=== PATIENT | female | born 1940 | race Caucasian/White ===

== ENCOUNTER 2016-10-03 14:55 | Inpatient (IN) | payer MEDICARE, BC ==
[~2016-10-03] VITALS: Ht 160 cm; Wt 45.4 kg
[~2016-10-03 14:55] MED LIST: ANTIVERT25 MG PO; ASPIRIN81 MG PO; DURAGESIC1 PATCH .7 TRANSDERM; K-DUR20 MEQ PO; MAG-OX 400 MG400 MG PO; METOPROLOL TART50 MG PO; MOBIC7.5 MG PO; NORVASC5 MG PO; PEPCID20 MG PO; PERCOCET 5-3251 TAB PO; PLAVIX75 MG PO; ZOFRAN ODT4 MG/UDTAB PO
[2016-10-03] MEDS ORDERED: OMEPRAZOLE20 M1 PO (15:44)
[2016-10-03] MEDS ORDERED: VITAMIN B650 MG PO (15:45)
[2016-10-03] MEDS ORDERED: DULCOLAX STOOL100 MG PO (15:45)
[2016-10-03] MEDS ORDERED: DULCOLAX5 MG PO (15:47)
[2016-10-03 16:10] VITALS: BP 148/88
--- NOTE | 2016-10-03 16:14 | NUR ---
Patient Name: RAYNA WOOD Admission Status: Elective Accout number: [id number] Admission Date: 10-03-2016 : 1940 Admission Diagnosis: Attending: NAYANA Current LOS: 1 Anticipated DC Date: 10-08-2016 Planned Disposition: Home Primary Insurance: MEDICARE A & B Discharge Planning Comments: CM MET WITH PATIENT AND SISTER (NICKO WOOD) REGARDING D/C NEEDS AND PLANS. PATIENT IS PARTIAL DEPENDENT WITH HER CARE. PATIENTS SISTER STATED THEY HAVE 2 STEPS W/RAILS TO ENTER HOME AND NO STAIRS INSIDE. PATIENT NEEDS HELP TRANSFERRING, BATH, DRESSING, MEDICATION, AND TOILETING. PATIENT CAN FEED HERSELF. PATIENT HAS A CAN AND A BUILT IN SHOWER CHAIR. PATIENTS PCP IS DR. LOPEZ AND PHARMACY IS [facility] AT [place]. PATIENT HAD [facility] BACK IN NOVEMBER AND WILL USE THEM AGAIN IF NEEDED. CM WILL CONTINUE TO FOLLOW PATIENT WITH D/C NEEDS AND PLANS. PCP DR. LOPEZ [facility] [place] IN [place]- [phone] NICKO WOOD (SISTER) [phone] Straight Line Press Setter: Latonia Bocanegra Is the patient Alert and Oriented? Yes 0 * How many steps to enter\exit or inside your home? 2 W/RAILS 0 * PCP DR. LOPEZ 0 * Pharmacy [facility] AT [place] 0 * Preadmission Environment Home with Family 0 * ADLs Partial Dependent 0 * Partial ADLs (Assistance needed) Ambulation Bathing Dressing Medication Management Toileting Transfers 0 * Equipment Cane 0 * Other Equipment BUILT IN SHOWER CHAIR 0 * List name and contact numbers for known caregivers / representatives who currently or will assist patient after discharge: NICKO WOOD (SISTER) [phone] 0 * Community resources currently utilized None 0 * Additional services required to return to the preadmission environment? Yes 0 * Can the patient safely return to the preadmission environment? Yes 0 * Has this patient been hospitalized within the prior 30 days at any hospital? No 0 Grand Total: 0
[2016-10-03 16:15] LABS: BASOPHILS 0.3 % (0.0-2.0); EOSINOPHILS 0.8 % (0-7); HEMATOCRIT 29.7 % (36.0-48.0); HEMOGLOBIN 9.8 g/dL (12-16); IMMATURE GRANULOCYTES 0.1 % (0-5); MCH 32.5 pg (26.0-34.0); MCV 98.3 fL (80.0-100.0); MEAN PLATELET VOLUME 10.3 fL (7.4-10.4); MONOCYTES 6.6 % (2-11); NEUTROPHILS 85.2 % (40-80); RBC 3.02 10x6/uL (4.00-5.40); RDW 14.3 % (11.5-14.5); WBC 7.1 10x3/uL (4.8-10.8)
[2016-10-03 16:19] LABS: PLATELET COUNT 271 10x3/uL (130-400)
--- NOTE | 2016-10-03 16:31 | NUR ---
LEFT SUBCLAVIAN PORT ACCESSED,Openbravo USED 20G,1 INCH NEEDLE.PT TOLERATED WELL.ASSESSMENT PER FLOW SHEET.
[2016-10-03 16:53] LABS: ALBUMIN 1.5 g/dL (3.4-5.0); ANION GAP 13.7 mmol/L (8-16); BILIRUBIN - TOTAL 0.22 mg/dL (0.2-1.3); CALCIUM 9.2 mg/dL (8.5-10.1); CARBON DIOXIDE 25.2 mmol/L (21.0-32.0); CREATININE - SERUM 0.8 mg/dL (0.6-1.3); POTASSIUM - SERUM 3.9 mmol/L (3.5-5.1); PROTEIN - SERUM 4.4 g/dL (6.4-8.2)
[2016-10-03 18:51] VITALS: BP 144/88
[2016-10-03 19:00] VITALS: BP 126/66
--- NOTE | 2016-10-03 19:27 | NUR ---
REMAINS WITHOUT NEEDS,WITHOUT CHANGE.CONT PLAN OF CARE
[2016-10-03 22:32] LABS: APPEARANCE CLEAR (CLEAR); BILIRUBIN NEGATIVE (NEGATIVE); COLOR YELLOW (YELLOW); GLUCOSE NEGATIVE (NEGATIVE); KETONE NEGATIVE (NEGATIVE); LEUKOCYTE ESTERASE TRACE (NEGATIVE); NITRITE NEGATIVE (NEGATIVE); PROTEIN NEGATIVE (NEGATIVE); UROBILINOGEN NORMAL (NORMAL)
[2016-10-03 22:33] LABS: BACTERIA FEW /hpf (NONE SEEN); EPITHELIAL CELLS 0-5 /hpf (0-5); RED CELLS - URINE 0-5 /hpf (0-5); WHITE CELLS - URINE 0-5 /hpf (0-5)
[2016-10-04] VITALS: BP 173/65
--- NOTE | 2016-10-04 01:11 | NUR ---
RESTING QUIETLY.NO DISTRESS NOTED.CL IN REACH. FAMILY AT BEDSIDE
[2016-10-04 04:00] VITALS: BP 132/63
--- NOTE | 2016-10-04 05:04 | NUR ---
PATIENT SLEEPING WITH NO DISTRESS NOTED. RR EVEN AND UNLABORED. LEFT PORT PATENT WITH NS INFUSING AT 50. FAMILY AT BEDSIDE. SRX2. BED LOW. CALL LIGHT WITHIN REACH.
--- NOTE | 2016-10-04 06:46 | NUR ---
NO CHANGE IN ASSESSMENT
--- NOTE | 2016-10-04 07:20 | NUR ---
PATIENT IS AWAKE AND ALERT. SHE RATES HER PAIN A 10 ON THE PAIN SCALE. SHE STATES THAT SHE HAD A TERRIBLE NIGHT DUE TO THE PAIN/ INABILITY TO SLEEP. MEDICATED AFTER ASSISTING HER UP TO THE RESTROOM. SHE VOIDED 300CC YELLOW URINE. SHE DOES REQUIRE MODERATE ASSIST OF ONE PERSON TO GET UP TO THE BEDSIDE.
[2016-10-04 07:35] LABS: BASOPHILS 0.5 % (0.0-2.0); EOSINOPHILS 2.3 % (0-7); HEMATOCRIT 31.4 % (36.0-48.0); HEMOGLOBIN 10.2 g/dL (12-16); IMMATURE GRANULOCYTES 0.3 % (0-5); LYMPHOCYTES 15.2 % (15-50); MCH 32.1 pg (26.0-34.0); MCHC 32.5 g/dL (31.0-37.0); MCV 98.7 fL (80.0-100.0); MEAN PLATELET VOLUME 10.3 fL (7.4-10.4); MONOCYTES 8.4 % (2-11); NEUTROPHILS 73.3 % (40-80); PLATELET COUNT 290 10x3/uL (130-400); RBC 3.18 10x6/uL (4.00-5.40); RDW 14.3 % (11.5-14.5); WBC 7.8 10x3/uL (4.8-10.8)
[2016-10-04 07:51] LABS: ALBUMIN 1.6 g/dL (3.4-5.0); ALKALINE PHOSPHATASE 307 U/L (46-116); ALT (SGPT) 31 U/L (10-68); BILIRUBIN - TOTAL 0.41 mg/dL (0.2-1.3); CALC OSMOLALITY 268 mosm/kg (275-300); CALCIUM 9.6 mg/dL (8.5-10.1); CARBON DIOXIDE 30.1 mmol/L (21.0-32.0); CHLORIDE - SERUM 102 mmol/L (98-107); CREATININE - SERUM 0.6 mg/dL (0.6-1.3); POTASSIUM - SERUM 4.3 mmol/L (3.5-5.1); PROTEIN - SERUM 4.8 g/dL (6.4-8.2); SODIUM 136 mmol/L (136-145); UREA NITROGEN 6 mg/dL (7-18); eGFR NON AFRICAN AMERICAN > 90 mL/min (90-120)
[2016-10-04 07:52] LABS: GLUCOSE 82 mg/dL (74-106)
[2016-10-04 08:04] VITALS: BP 147/59
--- NOTE | 2016-10-04 08:37 | NUR ---
PATIENT C/O NAUSEA R/T THE PAIN IN HER BACK. MEDICATION GIVEN. SHE STATES THAT HER BACK PAIN IS STILL RATED A 9 BUT SHE FEELS BETTER. SISTER REMAINS AT THE BEDISDE. PATIENT'S EYES WERE CLOSED WHEN I ENTERED BUT AROUSED TO MY VOICE.
--- NOTE | 2016-10-04 10:04 | NUR ---
PATIENT ATE A BIT OF HER PANCAKES AND VOMITED. C/O CONTINUED PAIN.
[2016-10-04 11:39] VITALS: BP 155/59
[2016-10-04 13:43] VITALS: Ht 160 cm; Wt 45.4 kg
--- NOTE | 2016-10-04 15:35 | NUR ---
PATIENT RESTING WITH HOB UP 30 DEGREES. TV ON LOW. SISTER AT THE BEDSIDE. SHE C/O PAIN AT AN 8. ALSO CONTINUES TO HAVE NAUSEA.
[2016-10-04 15:36] VITALS: BP 149/66
[2016-10-04 19:00] VITALS: BP 125/71
[2016-10-05] VITALS (7 sets, daily range): BP systolic 135–171; BP diastolic 57–80
--- NOTE | 2016-10-05 00:55 | NUR ---
PATIENT SLEEPING SUPINE IN BED WITH NO DISTRSS NOTED. HOB 20 DEGREES. RR EVEN AND UNLABORED. LEFT PORT PATENT AND INFUSING NS @ 50. SCD'S ON. FAMILY AT BEDSIDE. SRX2. BED LOW. CALL LIGHT WITHIN REACH.
--- NOTE | 2016-10-05 07:57 | NUR ---
PATIENT IS AWAKE AND ALERT, ORIENTED TIMES THREE, RESTING EASILY, BUT C/O PAIN ON RIGHT ARM ESPECIALLY HER ELBOW. FAMILY AT BEDSIDE.
--- NOTE | 2016-10-05 08:45 | NUR ---
PATIENT C/O NAUSEA. PROVIDED ZOFRAN IVP, SEE MAR.
--- NOTE | 2016-10-05 09:15 | NUR ---
PATIENT SAYS SHE IS STILL NAUSEATED AND NOT ABLE TO EAT, PROVIDED ICE CHIPS AND SHE IS TRYING TO DRINK A LITTLE WATER.
--- NOTE | 2016-10-05 10:03 | NUR ---
PATIENT C/O PAIN IN RIGHT ARM RATES IT 8-9-10 OUT OF 10. DILAUDID IVP PROVIDED, SEE MAR.
--- NOTE | 2016-10-05 10:30 | NUR ---
PATIENT SAYS PAIN IS LESS, BUT IT REMAINS CONSTANT.
--- NOTE | 2016-10-05 10:53 | NUR ---
PATIENT C/O SOB AND SAYS SHE CAN'T SWALLOW, CHECKED SPO2 IT IS 98-99%. SHE DENIES PAIN IN THROAT AND SHE IS LIFTED UP IN BED. RASHIDA GUAJARDO IS TRYING TO CALM PATIENT BY ASKING HER TO TAKE SOME SLOW DEP BREATHS.
--- NOTE | 2016-10-05 11:50 | NUR ---
PATIENT IS CALMER, BUT SHE SAYS SHE IS HAVING PAIN IN THE BACK OF HER NECK. SHE IS BREATHING EASIER AND SHE IS LESS ANXIOUS.
[2016-10-06] VITALS: BP 173/65
--- NOTE | 2016-10-06 03:47 | NUR ---
PATIENT SLEEPING SUPINE IN BED. HOB 20 DEGREES. RR EVEN AND UNLAORED. 0 S/S OF DISTRESS. LEFT PORT PATENT INFUSING NS @ 50. SCD'S ON. FAMILY AT BEDSIDE. SRX2. BED LOW. CALL LIGHT WITHIN REACH.
[2016-10-06 04:00] VITALS: BP 179/83
--- NOTE | 2016-10-06 07:33 | NUR ---
AWAKE AND ALERT. ORIENTED X3. C/O INTENSE BACK PAIN LEVEL 6. BP ELEVATED WELL. GIVEN 2MG DILAUDID SLOW IVP FOR SAME. WILL MONITOR. LUNGS ARE CLEAR BILATERALLY, NO COUGH NOTED BUT DIMINISED IN LOWER LOBES. SKIN IS INTACT WITHOUT REDNESS BUT SOME BRUISING NOTED TO LEFT UPPER ARM WHICH SHE REPORTS FROM BP CUFF. WILL MONITOR. SCD'S IN PLACE. DENJENNYS NEEDS.
[2016-10-06 07:49] VITALS: BP 166/137
--- NOTE | 2016-10-06 10:42 | NUR ---
REQUESTED AND GIVNE ONE OXYCODONE PO FOR C/O GENERALIZED PAIN AFTER ACTIVITY OF ADL'S. PAIN LEVEL 10. WILL MONITOR.
[2016-10-06 12:22] VITALS: BP 130/78
--- NOTE | 2016-10-06 15:34 | NUR ---
REQUESTED AND GIVEN 2 MG HYDROMOPHONE SLOW IVP FOR C/O NECK PAIN LEVEL 9. WILL MONITOR.
[2016-10-06 16:00] VITALS: BP 130/58
--- NOTE | 2016-10-06 18:13 | NUR ---
ATE ABOUT HALF OF SUPPER WITH FAMILY'S ASSISTANCE. NO CHANGES NOTED. DENIES NEEDS.
--- NOTE | 2016-10-06 19:58 | NUR ---
PRN PERCOCET GIVEN FOR C/O OF GEN PAIN 06/09, MARI WELL, ASSISTED TO RESTROOM, ASSESSMENT COMPLETED, DENIES FURTHER NEEDS VISITOR IN ROOM, CL IN REACH, WILL MONITOR
[2016-10-06 20:43] VITALS: BP 144/68
--- NOTE | 2016-10-06 21:30 | NUR ---
LYING IN BED WATCHING TV, FAMILY IN ROOM, DENIES NEEDS, CL IN REACH
--- NOTE | 2016-10-06 23:20 | NUR ---
RESTING WITH EYES CLOSED, RESP WITH EASE, NO DISTRESS NOTED, CL IN REACH
--- NOTE | 2016-10-07 05:43 | NUR ---
PRN DILAUDID GIVEN FOR C/O PAIN 07/09 ALONG WITH ROUTINE MEDS, MARI WELL, FAMILY AT BEDSIDE, CL IN REACH
--- NOTE | 2016-10-07 07:48 | NUR ---
AWAKE AND ALERT. ORIENTED X3. NO C/O AT THIS TIME. LUNGS ARE CLEAR BILATERALLY, NO COUGH NOTED. SKIN IS INTACT WITHOUT REDNESS. LEFT PORT PATENT WITHOUT REDNESS AT INSERTION SITE. DENIES NEEDS. SCD'S IN PLACE.
[2016-10-07 08:04] VITALS: BP 130/80
--- NOTE | 2016-10-07 09:45 | NUR ---
UP TO BR WITH 2 PERSON MIN ASSIST. HAD VERY SMALL BM. SKIN CARE PER SELF.
[2016-10-07 11:56] VITALS: BP 130/60
[2016-10-07 15:59] VITALS: BP 130/70
[2016-10-07 19:00] VITALS: BP 146/68
--- NOTE | 2016-10-07 19:06 | NUR ---
UP TO BR WITH 2 PERSON MIN ASSIST. HAD LARGE FORMED STOOL. SKIN CARE PER SELF.
--- NOTE | 2016-10-07 19:55 | NUR ---
ASSESSMENT COMPLETED, FAMILY IN ROOM, DENIES NEEDS, SR'S UP X2, CL IN REACH
--- NOTE | 2016-10-07 19:55 | NUR ---
PRN DILAUDID GIVEN FOR C/O PAIN 07/09, MARI WELL, ASSESSMENT COMPLETED, NO OTHER NEEDS NOTED, FAMILY IN ROOM, SR'S UP , CL IN REACH, WILL MONITOR
--- NOTE | 2016-10-07 22:51 | NUR ---
MEDS GIVEN PER MAR , MARI WELL, FAMILY IN ROOM, WILL MONITOR
--- NOTE | 2016-10-08 01:22 | NUR ---
ASSISTED UP TO RESTROOM AND BACK TO BED, NO ACUTE DISTRESS NOTED, DSG TO L SUBCLAVIAN CHANGED USING STERILE TECHNIQUE, PICKARD LEFT IN PLACE, MARI WELL, DENIES NEEDS., FALL PRECAUTIONS IN PLACE, FAMILY IN ROOM, CL IN REACH
--- NOTE | 2016-10-08 03:55 | NUR ---
RESTING WITH EYES CLOSED, RESP WITH EASE, NO DISTRESS NOTED, SR'S UPL, CL IN REACH, FAMILY AT BEDSIDE
[2016-10-08 04:00] VITALS: BP 138/70
[2016-10-08 08:07] VITALS: BP 172/74
--- NOTE | 2016-10-08 09:00 | NUR ---
ASSESSMENT PER FLOW SHEET.PT WITHOUT DISTRESS.STATES PAIN 8/10 SCALE TO BACK.STATES THIS IS CHRONIC FROM CANCER.FAMILY AT BEDSIDE.CALL LIGHT IN REACH
[2016-10-08 12:09] VITALS: BP 166/70
[2016-10-08] MEDS ORDERED: LOVENOX40 MG/0.4 SC (13:48)
[2016-10-08] MEDS ORDERED: DULCOLAX STOOL100 MG PO (13:48)
[2016-10-08] MEDS ORDERED: ZOFRAN ODT4 MG/UDTAB PO (13:48)
[2016-10-08] MEDS ORDERED: ASPIRIN81 MG PO (13:48)
[2016-10-08] MEDS ORDERED: PERCOCET 5-3251 TAB PO (13:48)
[2016-10-08] MEDS ORDERED: OMEPRAZOLE20 M1 PO (13:48)
[2016-10-08] MEDS ORDERED: DURAGESIC1 PATCH .7 TRANSDERM (13:48)
[2016-10-08] MEDS ORDERED: VITAMIN B650 MG PO (13:49)
[2016-10-08] MEDS ORDERED: DULCOLAX5 MG PO (13:49)
--- NOTE | 2016-10-08 14:10 | NUR ---
DELILAH REASSESSMENT NOTE: CALL TO [facility] FOR TRANSFER OF PATIENT FOR RADIATION WAS INITIATED THIS AM. CM RECIEVED CALL FROM CACHORRO AT [facility] AND ROOM IS READY - 446 ON 4. DELILAH CALLED DR. LOPEZ AND HE IS PUTTING D/C ORDERS IN. NURSE WAS NOTIFIED OF PATIENTS ACCEPTANCE AND PHONE NUMBER FOR REPORT WAS GIVEN TO [facility]. TRANSFER BACK AGREEMENT WAS SIGNED BY ALEXANDER CLARKCAKE WINDER.
--- NOTE | 2016-10-08 14:38 | NUR ---
REPORT TO [facility],SPOKE WITH ENMA
--- NOTE | 2016-10-08 15:46 | NUR ---
LEFT UNIT WITH [facility] FOR TRANSPORT TO [facility]
== END 2016-10-08 15:47 | disposition short-term general hospital, planned readmission (82) | DRG 947 ==
LOC: D.MS 14:55
PROVIDERS: ADMIT Legal Medicine
DX: G89.3 Neoplasm related pain (acute) (chronic) (principal); I26.99 Other pulmonary embolism without acute cor pulmonale; C18.9 Malignant neoplasm of colon, unspecified; C79.51 Secondary malignant neoplasm of bone; K59.00 Constipation, unspecified

== ENCOUNTER 2016-11-05 03:40 | Emergency (ER) | payer MEDICARE, BC ==
[2016-10-04 13:43] VITALS: BMI 17.7
[~2016-11-05 03:40] MED LIST changes: +DULCOLAX STOOL100 MG PO; +DULCOLAX5 MG PO; +LOVENOX40 MG/0.4 SC; +OMEPRAZOLE20 M1 PO; +VITAMIN B650 MG PO
[2016-11-05 06:34] LABS: BASOPHILS 0.2 % (0.0-2.0); EOSINOPHILS 0.2 % (0-7); HEMATOCRIT 33.3 % (36.0-48.0); HEMOGLOBIN 11.7 g/dL (12-16); IMMATURE GRANULOCYTES 0.2 % (0-5); LYMPHOCYTES 3.3 % (15-50); MCHC 35.1 g/dL (31.0-37.0); MCV 93.8 fL (80.0-100.0); MEAN PLATELET VOLUME 10.3 fL (7.4-10.4); MONOCYTES 9.3 % (2-11); NEUTROPHILS 86.8 % (40-80); PLATELET COUNT 261 10x3/uL (130-400); RBC 3.55 10x6/uL (4.00-5.40); RDW 15.6 % (11.5-14.5); WBC 8.3 10x3/uL (4.8-10.8)
[2016-11-05 06:53] LABS: ALBUMIN 1.6 g/dL (3.4-5.0); ALKALINE PHOSPHATASE 392 U/L (46-116); ALT (SGPT) 60 U/L (10-68); CALC OSMOLALITY 250 mosm/kg (275-300); CALCIUM 8.7 mg/dL (8.5-10.1); CARBON DIOXIDE 29.1 mmol/L (21.0-32.0); CHLORIDE - SERUM 91 mmol/L (98-107); CREATININE - SERUM 0.7 mg/dL (0.6-1.3); GLUCOSE 87 mg/dL (74-106); POTASSIUM - SERUM 4.8 mmol/L (3.5-5.1); PROTEIN - SERUM 4.7 g/dL (6.4-8.2); SODIUM 126 mmol/L (136-145); UREA NITROGEN 10 mg/dL (7-18); eGFR NON AFRICAN AMERICAN 86 mL/min (90-120)
== END 2016-11-05 09:00 ==
LOC: D.ER 03:40
PROVIDERS: Emergency Medicine
DX: S16.1XXA Strain of muscle, fascia and tendon at neck level, initial encounter (principal); W18.12XA Fall from or off toilet with subsequent striking against object, initial encounter; Y93.89 Activity, other specified; Y92.012 Bathroom of single-family (private) house as the place of occurrence of the external cause; R00.0 Tachycardia, unspecified; C79.51 Secondary malignant neoplasm of bone; R53.1 Weakness; E86.0 Dehydration; D64.9 Anemia, unspecified; E87.1 Hypo-osmolality and hyponatremia; G89.29 Other chronic pain; I10 Essential (primary) hypertension

== ENCOUNTER 2016-11-05 10:06 | Inpatient (IN) | payer MEDICARE, BC ==
[~2016-11-05] VITALS: Ht 162.6 cm; Wt 44.9 kg
--- NOTE | 2016-11-05 10:30 | NUR ---
TO ROOM 2224 FROM OFFICE.C/ BACK AND NECK PAIN 8/10 SCALE.C/O SOME NAUSEA.ASSESSMENT PER FLOW SHEET.ORIENTATION TO ROOM.FAMILY AT SIDE.CALL LIGHT IN REACH.FALL PREVENTION INITIATED.
[2016-11-05 12:32] VITALS: BP 119/57
[2016-11-05 13:32] VITALS: BP 124/99; BMI 17.0
[2016-11-05 16:08] VITALS: BP 127/61
[2016-11-05 19:00] VITALS: BP 144/57
--- NOTE | 2016-11-05 19:03 | NUR ---
FAMILY REMAINS AT BEDSIDE.PT WITHOUT NEEDS,WITHOUT CHANGE.CONT PLAN OF CARE
--- NOTE | 2016-11-05 20:00 | NUR ---
ASSESSMENT PER FLOWSHEET. IV PATENT LEFT IFP WITH D5NS INFUSING AT 100CC'S/HR SITE CLEAR. BOX ALARM ON FOR FALL PRECAUTIONS. SR UP X2 CALL LIGHT WITHIN REACH RELATIVE AT BEDSIDE.
--- NOTE | 2016-11-05 21:02 | NUR ---
C/O PAIN BACK/NECK RATES PAIN LEVEL #8. DILAUDID 1MG IVP GIVEN FOR PAIN CONTROL.
--- NOTE | 2016-11-06 | NUR ---
EYES CLOSED RESPIRATIONS WITH EASE AND UNLABORED.
--- NOTE | 2016-11-06 02:07 | NUR ---
EYES CLOSED RESPIRATIONS WITH EASE AND UNLABORED.
[2016-11-06 04:00] VITALS: BP 144/66
--- NOTE | 2016-11-06 04:13 | NUR ---
EYES CLOSED RESPIRATIONS WITH EASE AND UNLABORED.
[2016-11-06 06:54] LABS: APPEARANCE CLEAR (CLEAR); BILIRUBIN NEGATIVE (NEGATIVE); COLOR YELLOW (YELLOW); GLUCOSE NEGATIVE (NEGATIVE); KETONE NEGATIVE (NEGATIVE); LEUKOCYTE ESTERASE NEGATIVE (NEGATIVE); NITRITE NEGATIVE (NEGATIVE); PROTEIN NEGATIVE (NEGATIVE); UROBILINOGEN NORMAL (NORMAL)
--- NOTE | 2016-11-06 07:00 | NUR ---
REPORT RECIEVED ASSUMED CARE. PATIENT IN BED WITH IV INTACT. NO COMPLAINTS. CALL LIGHT WITHIN REACH.
[2016-11-06 09:23] VITALS: BP 158/59
--- NOTE | 2016-11-06 10:17 | NUR ---
PATIENT IN BED WITH IV INTACT. DILAUDID IVP GIVEN OVER 2 MINUTES FOR PAIN. NO OTHER COMPLAINTS AT THIS TIME. FAMILY AT BEDSIDE. CALL LIGHT WITHIN REACH.
[2016-11-06 11:47] VITALS: BP 144/63
[2016-11-06 12:19] LABS: BASOPHILS 0.2 % (0.0-2.0); EOSINOPHILS 2.9 % (0-7); MCH 32.4 pg (26.0-34.0); MCHC 33.6 g/dL (31.0-37.0); MEAN PLATELET VOLUME 10.2 fL (7.4-10.4); MONOCYTES 11.3 % (2-11); NEUTROPHILS 80.6 % (40-80); PLATELET COUNT 217 10x3/uL (130-400)
[2016-11-06 12:30] LABS: RBC 2.62 10x6/uL (4.00-5.40); WBC 4.4 10x3/uL (4.8-10.8)
[2016-11-06 12:31] LABS: HEMATOCRIT 25.3 % (36.0-48.0); HEMOGLOBIN 8.5 g/dL (12-16); MCV 96.6 fL (80.0-100.0)
[2016-11-06 12:35] LABS: ALBUMIN 1.2 g/dL (3.4-5.0); ALKALINE PHOSPHATASE 276 U/L (46-116); ALT (SGPT) 38 U/L (10-68); CALC OSMOLALITY 256 mosm/kg (275-300); CALCIUM 7.7 mg/dL (8.5-10.1); CARBON DIOXIDE 20.2 mmol/L (21.0-32.0); CHLORIDE - SERUM 99 mmol/L (98-107); CREATININE - SERUM 0.6 mg/dL (0.6-1.3); GLUCOSE 105 mg/dL (74-106); POTASSIUM - SERUM 3.8 mmol/L (3.5-5.1); PROTEIN - SERUM 3.6 g/dL (6.4-8.2); SODIUM 129 mmol/L (136-145); UREA NITROGEN 7 mg/dL (7-18); eGFR NON AFRICAN AMERICAN > 90 mL/min (90-120)
[2016-11-06 13:00] VITALS: Ht 162.6 cm; Wt 44.9 kg
--- NOTE | 2016-11-06 13:43 | NUR ---
PATIENT IN BED WITH NO COMPLAINTS AT THIS TIME. IV INTACT. FAMILY AT BEDSIDE. CALL LIGHT WITHIN REACH.
[2016-11-06 16:05] VITALS: BP 167/56
--- NOTE | 2016-11-06 16:45 | NUR ---
PATIENT IN BED WITH IV INTACT. NO COMPLAINTS. FAMILY AT BEDSIDE. CALL LIGHT WITHIN REACH.
[2016-11-06 19:00] VITALS: BP 147/67
--- NOTE | 2016-11-06 21:32 | NUR ---
PATIENT RESTING IN BED WITH EYES CLOSED. SISTER PRESENT. SHIFT ASSESSMENT COMPLETED. NO NEEDS VOICED AT THIS TIME. BED LOW. CALL LIGHT IN REACH
[2016-11-06 23:59] VITALS: BP 149/64
--- NOTE | 2016-11-07 04:42 | NUR ---
EYES CLOSED RESPIRATIONS WITH EASE AND UNLABORED.
[2016-11-07 05:03] VITALS: BP 150/70
--- NOTE | 2016-11-07 07:34 | NUR ---
REQUESTED AND GIVEN ONE MG DILAUDID SLOW IVP FOR C/O GENERALLIZED PAIN LEVEL 10. WILL MONITOR. FAMILY AT BEDSIDE.
--- NOTE | 2016-11-07 08:10 | NUR ---
AWAKE AND ALERT ORIENTED X3. REPORTS GOOD PAIN RELIEF WITH USE OF DILAUDID. LUNGS ARE CLEAR BILATERALLY, NO COUGH NOTED. SKIN IS INTACT WITHOUT REDNESS EXCEPT AREA OVER STERNUM WHICH IS REDDENED FROM RADIATION. RIGHT PORT IS PATENT WITHOUT REDNESS AT INSERTION SITE. DENIES NEEDS. 2 PLUS EDEMA NOTED TO BILATERAL ARMS. WILL MONITOR.
[2016-11-07 08:32] VITALS: BP 182/72
--- NOTE | 2016-11-07 10:28 | NUR ---
ATE PART OF CREAM OF WHEAT. DENIES NEEDS. NO C/O AT THIS TIME.
--- NOTE | 2016-11-07 11:12 | NUR ---
Patient Name: RAYNA WOOD Admission Status: Urgent Accout number: [id number] Admission Date: 11-05-2016 : 1940 Admission Diagnosis:STRAIN OF MUSCLE, FASCIA AND TENDON AT NECK LEVEL, INIT Attending: NAYANA Current LOS: 2 Anticipated DC Date: 11-12-2016 Planned Disposition: Home Primary Insurance: MEDICARE A & B Discharge Planning Comments: CM MET WITH PATIENT AND SISTER (NICKO) REGARDING D/C NEEDS AND PLANS. PATIENTS SISTER STATED THERE ARE TWO STEPS W/RAILS TO ENTER THEIR HOME AND NO STAIRS INSIDE. PATIENT IS TOTALLY DEPENDENT PER SISTER. PATIENTS SISTER STATED SHE WAS WALKING AT HOME UNTIL THIS LAST RADIATION. PATIENT HAS TO HAVE HELP CUTTING FOOD, BATH, MEDS. DRESSING, AND TRANSFERS. THERE IS A TUB BENCH PER SISTER. PATIENTS PCP IS DR. MAJOR IN [place] AND SHE SEES DR. LOPEZ. PATIENTS PHARMACY IS [facility] IN [place]. PATIENT DID HAVE [employer] AND SISTER SIGNED THE KRISTEN FORM FOR [facility] AGAIN IF NEEDED. CM WILL CONTINUE TO FOLLOW PATIENT WITH D/C NEEDS AND PLANS. PCP DR. MAJOR (IN [place]) DR. LOYD (CANCER DOCTOR) [facility] IN [place]- [phone] NICKO WOOD (SISTER) [phone] [facility] ([phone]) Pullman Clerk: Latonia Bocanegra Is the patient Alert and Oriented? Yes 0 * How many steps to enter\exit or inside your home? 2 W/RAILS 0 * PCP DR. MAJOR ([place]) DR. LOPEZ 0 * Pharmacy [facility] IN [place] 0 * Preadmission Environment Home with Family 0 * ADLs Total Dependent 0 * Equipment Tub Bench 0 * List name and contact numbers for known caregivers / representatives who currently or will assist patient after discharge: NICKO WOOD (SISTER) [phone] 0 * Community resources currently utilized None 0 * Additional services required to return to the preadmission environment? Yes 0 * Can the patient safely return to the preadmission environment? Yes 0 * Has this patient been hospitalized within the prior 30 days at any hospital? Yes 0 Grand Total: 0
[2016-11-07 11:30] VITALS: BP 157/68
--- NOTE | 2016-11-07 12:30 | NUR ---
LUNCH SERVED IN ROOM. ATE ONLY A FEW BITES OF POTATOES AND GRAVY. REFUSED OFFER OF ALTERNATIVE.
--- NOTE | 2016-11-07 15:30 | NUR ---
WHEN ATTEMPTED TO GET BP. EDEMATOUS SKIN TO LEFT FOREARM SPLIT. CLEANED AND PLACED TEGADERM OVER AREA. WILL MONITOR.
--- NOTE | 2016-11-07 15:37 | NUR ---
WOUND CARE CONSULT: PT IS AT RISK FOR BREAKDOWN SHE IS 5'4" AND 99 POUNDS. SHE IS UP WITH ASSISTANCE TO CHAIR/BSC. SHE IS BEING ASSISTED TO TURN/REPOSITION WHILE IN BED. WOUND CARE WILL CONTINUE TO MONITOR.
[2016-11-07 16:45] VITALS: BP 200/74
--- NOTE | 2016-11-07 19:13 | NUR ---
REFUSED TO EAT ANY SUPPER. REFUSED OFFER OF ALTERNATIVE FOODS. SISTER AT BEDSIDE. NO CHANGES NOTED. DENIES NEEDS.
[2016-11-07 20:50] VITALS: BP 118/70
[2016-11-07 23:00] VITALS: BP 130/61
--- NOTE | 2016-11-07 23:38 | NUR ---
RN NOTE: PT LYING ON RIGHT SIDE AWAKE AND ALERT, REQUESTING PAIN TABLET...WILL NOTIFY PAPERHANGER PIPE OF REQUEST. LEFT PORT ACCESSED AND PATENT WITH D5 NS INFUSING AT 100 ML /HR. FAMILY MEMBER IS AT BEDSIDE. WILL CONTINUE TO MONITOR FOR NEEDS.
[2016-11-08 05:00] VITALS: BP 126/70
--- NOTE | 2016-11-08 07:29 | NUR ---
REQUESTED AND GIVEN 1 MG DILAUDID SLOW IVP FOR C/O BACK AND NECK PAIN LEVEL 8. WILL MONITOR.
[2016-11-08 07:53] VITALS: BP 167/50
--- NOTE | 2016-11-08 08:15 | NUR ---
AWAKE AND ALERT. ORIENTED X3. NO C/O AT THIS TIME. REPORTS GOOD RELIEF WITH USE OF DILAUDID. LUNGS ARE CLEAR BILATERALLY, NO COUGH NOTED. SKIN IS INTACT WITHOUT REDNESS EXCEPT SKIN TEAR TO LEFT FOREARM WHICH HAS A DRY INTACT DRESSING IN PLACE. LEFT PORT PATENT WTIHOUT REDNESS AT INSERTION SITE. EDEMA TO BILATERAL ARMS IS 2 PLUS BUT IMPROVED FROM YESTERDAY. WILL CONTINUE WITH ELBOWS ELAVATED. SISTER AT BEDSIDE. DENIES NEEDS.
--- NOTE | 2016-11-08 09:30 | NUR ---
UP TO BSC WITH ONE PERSON MIN ASSIST. VOIDED CLEAR YELLOW URINE WITHOUT DIFFICULTY. SKIN CARE PER STAFF. REPOSITIONED IN BED FOR COMFORT.
[2016-11-08 11:59] VITALS: BP 220/74
--- NOTE | 2016-11-08 13:41 | NUR ---
ATE ONLY A FEW BITES OF LUNCH. BP WAS ELEVATED BUT PAIN LEVEL WAS 10. WILL MONITOR.
--- NOTE | 2016-11-08 13:56 | NUR ---
NUTRITION MONITORING & EVAL CHART REVIEWED. PT NOT EATING MUCH. WILL PROVIDE ENSURE CLEAR AND CREAM SOUPS WITH MEALS. RD FOLLOWING
[2016-11-08 16:14] VITALS: BP 192/67
--- NOTE | 2016-11-08 18:13 | NUR ---
ATE A FEW BITES OF SUPPER. SISTER AT BEDSIDE. NO CHANGES NOTED. DENIES NEEDS. REPORTS FEELING BETTER AT THIS TIME.
[2016-11-08 21:18] VITALS: BP 217/69
--- NOTE | 2016-11-09 02:03 | NUR ---
PATIENT IN SEMI-FOWLERS POSITION. MOVED PATIENT UP IN THE BED PER HER REQUEST. GUEST AT BEDSIDE. PATIENT'S BED IN LOWEST POSITION AND CALL LIGHT WITHIN REACH.
[2016-11-09 04:00] VITALS: BP 187/74
[2016-11-09 08:44] VITALS: BP 236/95
--- NOTE | 2016-11-09 09:50 | NUR ---
PATIENT RECEIVED IN MID CASE POSITION RESTING WITH EYES CLOSED. RESPIRATIONS EVEN AND UNLABORED. FAMILY AT BEDSIDE WAKES EASY. C/O NAUSEA. ZOFRAN ADMINISTERED PER PRN ORDER. ORAL BP MEDICATION ADMINISTERED. DENIES NEEDS. SIDE RAILS UP X2. BED IN LOW POSITION. CALL LIGHT IN REACH.
[2016-11-09 10:35] LABS: BASOPHILS 0.3 % (0.0-2.0); EOSINOPHILS 0.2 % (0-7); HEMATOCRIT 22.4 % (36.0-48.0); IMMATURE GRANULOCYTES 0.3 % (0-5); MCH 32.8 pg (26.0-34.0); MCHC 33.5 g/dL (31.0-37.0); MCV 97.8 fL (80.0-100.0); MEAN PLATELET VOLUME 9.6 fL (7.4-10.4); MONOCYTES 13.2 % (2-11); PLATELET COUNT 224 10x3/uL (130-400); RBC 2.29 10x6/uL (4.00-5.40); RDW 16.3 % (11.5-14.5); WBC 5.9 10x3/uL (4.8-10.8)
[2016-11-09 10:39] LABS: HEMOGLOBIN 7.5 g/dL (12-16)
[2016-11-09 10:54] LABS: ALBUMIN 2.9 g/dL (3.4-5.0); ALKALINE PHOSPHATASE 162 U/L (46-116); ALT (SGPT) 24 U/L (10-68); BILIRUBIN - TOTAL 0.49 mg/dL (0.2-1.3); CALC OSMOLALITY 274 mosm/kg (275-300); CALCIUM 8.1 mg/dL (8.5-10.1); CARBON DIOXIDE 21.6 mmol/L (21.0-32.0); CHLORIDE - SERUM 105 mmol/L (98-107); CREATININE - SERUM 0.6 mg/dL (0.6-1.3); GLUCOSE 133 mg/dL (74-106); PROTEIN - SERUM 4.5 g/dL (6.4-8.2); SODIUM 138 mmol/L (136-145); UREA NITROGEN 3 mg/dL (7-18); eGFR NON AFRICAN AMERICAN > 90 mL/min (90-120)
[2016-11-09 10:59] LABS: POTASSIUM - SERUM 2.8 mmol/L (3.5-5.1)
[2016-11-09 12:02] VITALS: BP 186/78
--- NOTE | 2016-11-09 13:32 | NUR ---
KCL RIDER INITIATED PER ORDER. PATIENT ALERT IN BED. NO SIGNS OF DISTRESS NOTED. SIDE RAILS UP X2. BED IN LOW POSITION. CALL LIGHT IN REACH.
--- NOTE | 2016-11-09 14:20 | NUR ---
CM REASSESSMENT NOTE: PATIENT AND FAMILY HAS DECIDED TO HAVE HOSPICE ([facility]). DR. LOPEZ WAS NOTIFIED AND REFERRAL WAS SENT. HOSPICE TO EVAL PATIENT. NICKO (SISTER) CELL [phone] ANNABELLE WOOD (SISTER IN [place]) [phone]
--- NOTE | 2016-11-09 14:54 | NUR ---
ALERT IN BED. RESPIRATIONS EVEN AND UNLABORED. IV TUBING CHANGED AND LABELED PER PROTOCOL. DENIES NEEDS. SIDE RAILS UP X2. BED IN LOW POSITION. CALL LIGHT IN REACH.
--- NOTE | 2016-11-09 16:19 | NUR ---
DELILAH REASSESSMENT NOTE: PATIENT AND FAMILY WANTS TO SPEAK WITH DR. LOPEZ. HOSPICE NURSE HAS NOTIFIED HIM. PATIENT WILL MAKE A DECISION AFTER SPEAKING WITH DR. LOPEZ
--- NOTE | 2016-11-09 16:32 | NUR ---
ALERT IN BED. C/O PAIN 05/09. 1MG DILAUDID ADMINISTERED SLOW IVP. WELL TOLERATED. NO FURTHER NEEDS VOICED. SIDE RAILS UP X2. BED IN LOW POSITION. CALL LIGHT IN REACH.
[2016-11-09 16:50] VITALS: BP 180/61
--- NOTE | 2016-11-09 20:24 | NUR ---
ASSESSMENT PER FLOWSHEET. ALERT/ORIENTED X3 PALE. SISTER AT BEDSIDE BOTH ARMS SWOLLEN ELEVATED ON PILLOWS. IV PATENT LEFT INFUSAPORT WITH D5NS INFUSING AT 100CC'S/HR SITE CLEAR. ZOFRAN GTT INFUSING AT 4.7CC'S/HR. NO SCD'S. DENIES NEEDS AT THIS TIME.SR UP X2 CALL LIGHT WITHIN REACH.
[2016-11-09 20:53] VITALS: BP 168/59
--- NOTE | 2016-11-09 21:39 | NUR ---
C/O PAIN ALL OVER RATES PAIN LEVEL #8 DILAUDID 1MG IVP GIVEN FOR PAIN CONTROL.
[2016-11-10 00:17] VITALS: BP 183/67
--- NOTE | 2016-11-10 00:20 | NUR ---
XG=587/67. CATAPRES 0.1MG PO GIVEN FOR ELEVATED B/P
--- NOTE | 2016-11-10 01:00 | NUR ---
PLACED ON BEDPAN VOIDS WELL.
[2016-11-10 03:45] VITALS: BP 127/67
--- NOTE | 2016-11-10 04:30 | NUR ---
RESTING QUIETLY. B/P=127/67.
--- NOTE | 2016-11-10 06:02 | NUR ---
C/O PAIN IN HEAD. RATES LEVEL #5. NORCO TAB ONE PO GIVEN FOR PAIN CONTROL.
--- NOTE | 2016-11-10 06:07 | NUR ---
COMPLETE BED BATH WITH LINENS CHANGED PER LAURA GIVENS.
--- NOTE | 2016-11-10 07:30 | NUR ---
AWAKE ALERT COLOR ADQ SKIN WARM AND DRY RESP EVEN AND UNLABORED AT PRESENT DENIES ANY NEEDS SISTER AT BEDSIDE AT PRESENT RT ARM SWOLLEN GALLO LEGS SWOLLEN AISO AREA MID CHEST OUT LINE WITH MARKER AT PRESENT.
--- NOTE | 2016-11-10 07:58 | NUR ---
PATIENT RESTING IN SEMI-FOWLERS POSITION. PATIENT DENIES NEEDS AT THIS TIME. PATIENT'S BED IN LOWEST POSITION AND CALL LIGHT WITHIN REACH.
--- NOTE | 2016-11-10 09:00 | NUR ---
MEDS GIVEN MARI WELL AT PRESENT STATES THROAT DRY AT PRESENT.
--- NOTE | 2016-11-10 11:00 | NUR ---
REPOSITIONED FOR COMFORT AT PRESENT DE NIES ANY NEEDS AT THIS TIME.
[2016-11-10 12:20] VITALS: BP 188/70
--- NOTE | 2016-11-10 12:45 | NUR ---
PLACED ON BEDPAN TO VOID RT ARM CONT EDEMATOUS AND GALLO LEGS ALSO EDEMATOUS ALSO AT PRESENT IV'S CONT VIS IP AT PRESENT.
--- NOTE | 2016-11-10 13:21 | NUR ---
PLACED ON BEDPAN VOIDED 50CC OF DARK URINE AT PRESENT.
--- NOTE | 2016-11-10 15:09 | NUR ---
LAYING QUIETLY WITH EYES CLOSED AT PRESENT.
[2016-11-10 15:49] VITALS: BP 187/70
--- NOTE | 2016-11-10 17:56 | NUR ---
STATUS REMAINS UNCHGD AT PRESENT.
--- NOTE | 2016-11-10 18:21 | NUR ---
16 FR MELTON CATH INSERTED IN ST MANNER 200CC OF URINE OBTAINED AT PRESENT.
--- NOTE | 2016-11-10 19:58 | NUR ---
PATIENT RESTING IN SEMI-FOWLERS POSITION. PATIENT DENIES NEEDS AT THIS TIME. PATIENT'S BED IN LOWEST POSITION AND CALL LIGHT WITHIN REACH.
[2016-11-10 21:14] VITALS: BP 160/95
[2016-11-11 00:42] VITALS: BP 205/79
[2016-11-11 05:55] VITALS: BP 194/58
--- NOTE | 2016-11-11 07:45 | NUR ---
LAYING WITH EYES CLOSED 02 CONT AT 2L N/C MELTON CATH INTACT AND DRAINING YELLOW URINE CONT SWELLING OF EXTREMENITIES.GALLO ARM UP ON PILLOWS.
[2016-11-11 08:03] VITALS: BP 127/73
--- NOTE | 2016-11-11 09:00 | NUR ---
MEDS GIVEN MARI WELL AT PRESENT IV CONT AT 50CC/HR/IP DSG INTACT SITE CLEAH AND DRY.
[2016-11-11 11:11] VITALS: BP 180/65
--- NOTE | 2016-11-11 12:56 | NUR ---
QUIET IN ROOM SISTER AT BEDSIDE CONT TO HAVE BOUTS OF NAUSA TO SOON FOR MEDS.
[2016-11-11 16:22] VITALS: BP 144/63
--- NOTE | 2016-11-11 19:20 | NUR ---
RECIEVED SHIFT REPORT. PT IS LYING IN BED. ALERT AND ORIENTED AND ABLE TO VERBALIZE NEEDS. IV IS PATENT AND FLUIDS ARE RUNNING PER ORDER. MELTON IS DRAINING URINE BY GRAVITY. PT REQUIRES ASSISTANCE TURNING IN BED FOR COMFORT AND SKIN CARE. PT STATES PAIN IS 8/10. NO NEEDS ARE VERBALIZED AT THIS TIME. WILL CONTINUE TO MONITOR. FAMILY AT BEDSIDE. SIDE RAILS X 2. BED LOW. CALL LIGHT IN REACH.
--- NOTE | 2016-11-11 19:29 | NUR ---
1900 [facility] nurse advised CM of discharge plan. [facility] w/ [facility] met w/ patient and family this pm. Plan is for DME to be delivered to patient's home on Saturday evening. Patient will be discharged to home on Saturday via ambulance w/ [facility] care. Transportation to be arranged w/ [facility] service as the family has a contract w/ this service. CM will follow to assist as is appropriate.
--- NOTE | 2016-11-11 20:06 | NUR ---
SHIFT ASSESSMENT COMPLETED. PT C/O PAIN 05/09. ADMINISTERED PRESCRIBED PRN DILAUDID PER ORDER. ATTEMPTED TO TURN PT FOR SKIN CARE AND COMFORT AND PT REFUSED AT THIS TIME. NO NEEDS ARE VOICED. WILL MONITOR. FAMILY AT BEDSIDE. SIDE RAILS X 2. BED LOW. CALL LIGHT IN REACH.
[2016-11-11 21:35] VITALS: BP 201/77
--- NOTE | 2016-11-11 21:56 | NUR ---
TESTER/LIFT TRUCKER INFORMED ME OF PT B/P=. ADMINISTERED PRESCRIBED PRN CATAPRES 0.1 MG PER ORDER. DENIES NEEDS. WILL MONITOR. FAMILY AT BEDSIDE. SIDE RAILS X 2. BED LOW. CALL LIGHT IN REACH.
--- NOTE | 2016-11-11 22:44 | NUR ---
PT B/P=198/66. WILL CONTINUE TO MONITOR. FAMILY AT BEDSIDE. SIDE RAILS X 2. BED LOW. CALL LIGHT IN REACH.
[2016-11-12 01:00] VITALS: BP 146/62
[2016-11-12 04:00] VITALS: BP 200/68
[2016-11-12 08:29] VITALS: BP 195/70
--- NOTE | 2016-11-12 08:30 | NUR ---
ASSESSMENT PER FLOW SHEET.PT WITHOUT DISTRESS.SITTING UP IN BED AND EATING BREAKFAST.CALL LIGHT IN REACH
--- NOTE | 2016-11-12 12:17 | NUR ---
STATES PAIN 7/10 SCALE TO BACK AND NECK.AWAKENS INT.DOOR OPEN
[2016-11-12 12:29] VITALS: BP 201/75
--- NOTE | 2016-11-12 15:55 | NUR ---
WATER PROVIDED.PT WITHOUT DISTRESS.CALL LIGHT IN REACH.
[2016-11-12 16:57] VITALS: BP 201/73
--- NOTE | 2016-11-12 18:23 | NUR ---
REMAINS WITHOUT CHANGE,STILL C/O SOME NAUSEA.C/O SOME PAIN TO BACK AND NECK.CONT PLAN OF CARE
--- NOTE | 2016-11-12 19:35 | NUR ---
RECIEVED SHIFT REPORT. PT IS LYING IN BED. ALERT AND ORIENTED AND ABLE TO VERBALIZE NEEDS. IV IS PATENT AND FLUIDS ARE RUNNING PER ORDER. O2 @ 2 PER NASAL CANNULA. MELTON IS DRAINING URINE BY GRAVITY. PT REQUIRES ASSISTANCE TURNING IN BED FOR COMFORT AND SKIN CARE. NO NEEDS ARE VERBALIZED AT THIS TIME. FAMILY AT BEDSIDE. WILL CONTINUE TO MONITOR. SIDE RAILS ARE UP X 2. BED IS IN LOWEST POSITION. CALL LIGHT IS WITHIN REACH.
--- NOTE | 2016-11-12 20:15 | NUR ---
SHIFT ASSESSMENT COMPLETED. PT C/O NAUSEA AND PAIN 06/09. ADMINISTERED PRECRIBED PRN ZOFRAN AND DILAUDID PER ORDER. DENIES FURTHER NEEDS. WILL MONITOR. FAMILY AT BEDSIDE. SIDE RAILS X 2. BED LOW. CALL LIGHT IN REACH.
[2016-11-12 21:17] VITALS: BP 177/78
--- NOTE | 2016-11-13 08:03 | NUR ---
PATIENT'S RESPIRATIONS ARE LABORED. PATIENT REQUESTED PAIN MEDICATION RATED PAIN A 9/10 IN HER BACK. ADMINISTERED DILAUDID 1MG IV ORDERED PRN. PATIENT VERBALIZED NAUSEA, ADMINISTERED ZOFRAN 8MG IV ORDERED PRN. PATIENT'S OXYGEN SATURATION 76% OXYGEN VIA NASAL CANNULA AT 1L/MIN. TURNED OXYGEN UP SLOWLY UP TO 4.5L OXYGEN SATURATION NOW 86%. WITH ASSIST FROM FINGERPRINT TECHNICIAN TURNED PATIENT FROM HER RIGHT SIDE TO HER LEFT SIDE. PATIENT AND SISTER DENY FURTHER NEEDS AT THIS TIME.
--- NOTE | 2016-11-13 08:15 | NUR ---
SUCTIONED PATIENT. OXYGEN SATURATION 82% TURNED OXYGEN UP TO 6L
--- NOTE | 2016-11-13 08:18 | NUR ---
SPOKE WITH UNDATED HIM ON PATIENT'S STATUS. STATED "SHE IS A DNR, PLEASE PUT THE ORDER IN. AND RECONSULT HOSPICE."
--- NOTE | 2016-11-13 08:39 | NUR ---
ADMINISTERED IV LASIX PER ORDER. PATIENT'S RESPIRATIONS ARE STILL LABORED AT THIS TIME. PATIENT IS BREATHING THROUGH HER MOUTH. MOVED NASAL CANNULA FROM NOSE TO MOUTH. OXYGEN SATURATION SHOWED 76% TURNED UP TO 6L/ NASAL CANNULA NOW 90%. FEET ARE MODELED AND COLD. FAMILY AT BEDSIDE.
--- NOTE | 2016-11-13 08:41 | NUR ---
CALLED RESPIRATORY THERAPIST, SPOKE WITH DAMIAN
--- NOTE | 2016-11-13 08:55 | NUR ---
CM REASSESSMENT NOTE: PATIENT WAS TO DISCHARGE HOME TO HOSPICE TODAY. EQUIPMENT WAS TO BE DELIVERED AROUND 10 AM TODAY. HOSPICE HAS BEEN RE-CONSULTED FOR INPATIENT HOSPICE PER NURSE (RONALDO).
[2016-11-13 10:13] VITALS: BP 164/56
--- NOTE | 2016-11-13 10:18 | NUR ---
PATIENT'S SISTER CAME OUT TO THE DESK AND ASKED "WHEN IS THE LAST TIME SHE HAD PAIN MEDICATION?" PULLED UP ON THE MAR TOLD HER THE TIME. I ASKED "DO YOU THINK SHE IS HURTING?" SISTER STATED "WELL I DO NOT KNOW HOW OFTEN SHE IS SUPPOSED TO GET IT. WHEN SHE TURNED SHE GRUNTED. WILL IT HURT HER TO GIVE HER PAIN MEDICATION?" I STATED "IT WILL NOT CAUSE PAIN BUT IT CAN SUPRESS HER RESPIRATORY STATUS. AT THIS TIME SINCE SHE IS NOT ABLE TO TELL US, YOU AND YOUR SIBLINGS WILL BE THE ONES WHO TELL US WHAT YOU ALL WANT US TO DO." SHE STATED "OKAY." WENT IN PATIENT'S ROOM, BOTH SISTERS ARE IN THE ROOM, THEY SAID "WE WILL WAIT RIGHT NOW SHE IS OKAY." I STATED "OKAY JUST LET ME KNOW."
[2016-11-13 11:38] VITALS: BP 101/50
== END 2016-11-13 11:58 | disposition hospice, inpatient (51) | DRG 947 ==
LOC: D.MS 10:06
PROVIDERS: ADMIT Legal Medicine
DX: G89.3 Neoplasm related pain (acute) (chronic) (principal); E43 Unspecified severe protein-calorie malnutrition; C18.9 Malignant neoplasm of colon, unspecified; C79.51 Secondary malignant neoplasm of bone; E87.1 Hypo-osmolality and hyponatremia; Z68.1 Body mass index [BMI] 19.9 or less, adult; K59.00 Constipation, unspecified; S16.1XXA Strain of muscle, fascia and tendon at neck level, initial encounter; W18.12XA Fall from or off toilet with subsequent striking against object, initial encounter; Y92.002 Bathroom of unspecified non-institutional (private) residence as the place of occurrence of the external cause; R00.0 Tachycardia, unspecified; R53.1 Weakness; E86.0 Dehydration; D64.9 Anemia, unspecified; I10 Essential (primary) hypertension

== ENCOUNTER 2016-11-13 11:59 | Inpatient (IN) | payer OTHER ==
[~2016-11-13] VITALS: Ht 162.6 cm; Wt 59.1 kg
--- NOTE | 2016-11-13 13:50 | NUR ---
PATIENT'S RESPIRATIONS ARE LABORED. MOUTH BREATHING. PATIENT IS ON 11L VIA NON-REBREATHER MASK. DISCUSSED WITH FAMILY ORDER FOR OXYGEN NASAL CANNULA AT 2L. FAMILY STATED THE HOSPICE NURSE ALREADY DISCUSSED IT WITH THEM. TOOK OFF NON-REBREATHER APPLIED OXYGEN VIA NASAL CANNULA AT 5L/MIN WILL WEAN DOWN. PATIENT'S BILATERAL LEGS ARE MOTTLED. PATIENT'S FACE IS VERY PALE. PATIENT IS NOT RESPONDING TO VOCAL STIMULI. FAMILY IN ROOM. PATIENT DOES RESPOND TO BEING TURNED. BED IN LOWEST POSITION, CALL LIGHT IN REACH. BED RAILS UP X'S 2.
[2016-11-13 15:23] VITALS: BP 164/56; Ht 162.6 cm; Wt 59.1 kg
[2016-11-13 17:07] VITALS: BP 135/60
--- NOTE | 2016-11-13 17:47 | NUR ---
CNAS MOVED PATIENT VIA BED TO ROOM 2240. FAMILY IN ROOM.
--- NOTE | 2016-11-13 20:00 | NUR ---
INTRODUCED SARITA DOS SANTOS TO FAMILY. PATIENT RESTING WITH EYES CLOSED. BREATHING LABORED. NO CHANGE AT THIS TIME. BED IN LOWEST POSITION, CALL LIGHT IN REACH. BED RAILS UP X'S 2.
[2016-11-13 21:24] VITALS: BP 173/64
--- NOTE | 2016-11-14 | NUR ---
CARE ASSUMED AT THIS TIME. REPORT FROM SARITA QUAN. PT RESTING QUITELY WITH EYES CLOSED, BREATHING SHALLOW AND FAST ON 4L. PT ON HOSPICE CARE. FAMILY AT BEDSIDE. BED IN LOWEST POSITION,CALL LIGHT IN REACH, ASSESSMENT PER FLOWSHEET.
--- NOTE | 2016-11-14 01:58 | NUR ---
PT RESTING WITH EYES CLOSED WITH LABORED RESP, FAMILY AT BEDSIDE, NO ACUTE DISTRESS NOTED, SAFETY MEASURES IN PLACE, CL IN REACH
--- NOTE | 2016-11-14 03:46 | NUR ---
NO CHANGE IN CONDITION AT THIS TIME. BED IN LOWEST POSITION, CALL LIGHT IN REACH.
--- NOTE | 2016-11-14 07:00 | NUR ---
REPORT RECIEVED ASSUMED CARE. PATIENT IN BED EYES CLOSED RESTING QUIETLY. IV INTACT. MELTON INTACT. CALL LIGHT WITHIN REACH.
[2016-11-14 11:17] VITALS: BP 152/58
--- NOTE | 2016-11-14 18:45 | NUR ---
PATIENT IN BED WITH IV INTACT. NO COMPLAINTS. FAMILY AT BEDSIDE. CALL LIGHT WITHIN REACH.
--- NOTE | 2016-11-14 20:53 | NUR ---
ANSWERING CALL LIGHT, PT NON-RESPONSIVE. NO RESPERATIONS, HOSPICE NOTIFIED, SOAKERS SUPERVISOR NOTIFIED, PCP NOTIFIED.
--- NOTE | 2016-11-14 20:58 | NUR ---
THE HOSPICE NURSE CALLED, SHE WILL BE UP HERE SOON POSSIBLE.
--- NOTE | 2016-11-14 21:08 | NUR ---
DR. LOPEZ CALLED AND IS COMING TO SPEAK WITH THE FAMILY.
--- NOTE | 2016-11-14 22:26 | NUR ---
LEONILA NOTIFIED, PT IS NOT A QUALIFIED DONOR. HOME HAS BEEN NOTIFIED AND WILL BE HERE SOON. FAMILY SIGNED TO RELEASE TO HOME AND TOOK VALUBLES AT THIS TIME. DENTURES REMAIN WITH PT AND ARE TRANSPORTING WITH HOME.
--- NOTE | 2016-11-14 23:31 | NUR ---
BODY DISCHARGED TO [employer] FOR TRANSPORT TO HOME. RELEASE SIGNED AND FAXED TO [employer].
== END 2016-11-14 23:33 | DRG 951 ==
LOC: D.MS 11:59
PROVIDERS: ADMIT Legal Medicine
DX: Z51.5 Encounter for palliative care (principal)